=== PATIENT | male | born 1965 ===

== ENCOUNTER 2022-10-01 10:48 | Emergency (ER) | payer OTHER ==
[~2022-10-01] VITALS: Ht 172.7 cm; Wt 71.7 kg
== END 2022-10-01 13:10 | disposition home or self-care (01) ==
LOC: ER 10:48
DX: I10 Essential (primary) hypertension (principal)

== ENCOUNTER 2025-02-03 12:46 | Outpatient (CLI) | payer OTHER | END 2025-02-03 12:53 | disposition home or self-care (01) | LOC: SONOGRAMA 12:46 | PROVIDERS: ATTEND Internal Medicine Cardiovascular Disease | DX: M12.9 Arthropathy, unspecified (principal) ==